=== PATIENT | female | born 1945 | race Two or more races ===

== ENCOUNTER 2020-12-13 22:22 | Emergency (ER) | payer MEDICARE, BC ==
[~2020-12-13] VITALS: Ht 170.2 cm; Wt 78.5 kg
--- NOTE | 2020-12-13 22:50 | NUR ---
[facility] TO ER BED 7. AWAKE BUT LETHARGIC. PT RESPONDS TO TACTILE AND PAIN STIMULI. BROUGHT IN FOR BEING MORE ALTERED THAT USUAL. PER REPORT, PT WAS NOTED LATHARGIC AND DROWSY. PT WAS REPORTED TO HAVE JUST COMPLETED AN ATB COURSE FOR UTI. PT IS PRESENTED WITH A CORTEZ CATH INPLACE. PT IS AFEBRILE. AWAITING MD FOR EVAL. IV LINE ESTABLISHED ON LFA 18G, BLOOD DRAWN AND GIVEN TO PHLEB. PT ON MONITOR.
[2020-12-13 22:59] LABS: BASOPHILS # (AUTO) 0.1 K/uL (0.0-0.2); EOSINOPHILS % (AUTO) 3.8 % (0.0-6.0); HEMATOCRIT 37 % (33-45); HEMOGLOBIN 12.2 g/dL (11.5-14.8); LYMPHOCYTES # (AUTO) 2.1 K/uL (0.8-4.8); MEAN CORPUSCULAR HGB CONC 33 g/dl (31.0-36.0); MEAN CORPUSCULAR VOLUME 87 fL (82-100); MONOCYTES # (AUTO) 0.9 K/uL (0.1-1.30); MONOCYTES % (AUTO) 10.6 % (2.0-12.0); NEUTROPHILS # (AUTO) 5.1 K/uL (1.8-8.9); NEUTROPHILS % (AUTO) 59.6 % (43.0-81.0); PLATELET COUNT (AUTO) 225 K/uL (150-450); RED BLOOD CELL COUNT(AUTO) 4.21 MIL/uL (4.0-5.2); WHITE BLOOD COUNT (AUTO) 8.5 K/uL (4.3-11.0)
[2020-12-13 23:11] LABS: CALCIUM, SERUM 8.6 mg/dL (8.5-10.1); CARBON DIOXIDE 23 mmol/L (21-32); CHLORIDE 107 mmol/L (98-107); CREATININE 1.1 mg/dL (0.6-1.3); GLUCOSE 117 mg/dL (74-106); POTASSIUM 3.8 mmol/L (3.5-5.1); SODIUM SERUM 143 mmol/L (136-145); UREA NITROGEN, BLOOD 25 mg/dL (7-18)
[2020-12-13 23:19] LABS: ALANINE AMINOTRANSFERASE 21 U/L (12-78); ALBUMIN 2.8 g/dL (3.4-5.0); ALCOHOL, BLOOD < 3 mg/dL (0-0); ALKALINE PHOSPHATASE 104 U/L (46-116); ASPARTATE AMINOTRANSFERASE 15 U/L (15-37); BILIRUBIN,DIRECT 0.1 mg/dL (0.0-0.2); BILIRUBIN,TOTAL 0.2 mg/dL (0.2-1.0); TOTAL PROTEIN, SERUM 7.3 g/dL (6.4-8.2)
[2020-12-13 23:20] LABS: ACETAMINOPHEN < 2 ug/ml (10-30)
--- NOTE | 2020-12-13 23:29 | NUR ---
returned from radiology
[2020-12-13 23:31] LABS: SERUM AMMONIA 30 umol/L (11-32)
--- NOTE | 2020-12-13 23:32 | NUR ---
urine sent to lab
[2020-12-13 23:42] LABS: BILIRUBIN,URINE Negative (NEGATIVE); COLOR,URINE YELLOW (YELLOW); LEUKOCYTE ESTERASE ,URINE Large (NEGATIVE); NITRITE, URINE Negative (NEGATIVE); PH,URINE 5.5 (5.0-8.0); PROTEIN,URINE 30 mg/dl (NEGATIVE); UGLUCOSE Negative (NEGATIVE); UROBILINOGEN,URINE 0.2 EU/dL (0.2)
[2020-12-13 23:55] LABS: THYROID STIMULATING HORMONE 3.255 uIU/mL (0.358-3.74)
[2020-12-14 00:02] LABS: BACTERIA,URINE 2+ /HPF (None Seen); SQUAMOUS EPITHELIAL CELL,UR Few /HPF (None Seen); WBC,URINE 21-50 /HPF (0-3)
--- NOTE | 2020-12-14 01:06 | NUR ---
60-75 MINS ETA FOR TRANSPORT HOME VIA [facility] AT [facility].
--- NOTE | 2020-12-14 01:28 | NUR ---
[facility] AT BEDSIDE FOR PT TRANSPORT BACK HOME. DISCHARGE AFTERCARE INSTRUCTTION GIVEN TO PT'S . PT IS IN STABLE CONDITION FOR TRANSPORT.
[2020-12-14 01:29] VITALS: BP 147/85
== END 2020-12-14 01:30 | disposition home or self-care (01) ==
LOC: ER 22:23
DX: R41.0 Disorientation, unspecified (principal); I10 Essential (primary) hypertension; Z95.0 Presence of cardiac pacemaker
CPT/HCPCS: 36415; 70450-TC; 71045-TC; 80048-TC; 80076-TC; 81001; 82140-TC; 84443-TC; 84484-TC; 85025-TC; 85730-TC; 87086-TC; G0480